=== PATIENT | female | born 1960 | race Caucasian/White ===

== ENCOUNTER 2018-10-26 06:59 | Day surgery (SDC) | payer BC ==
--- NOTE | 2018-10-10 07:16 | HP ---
CC: LEONILA Mazariegos, [facility] * ADMISSION HISTORY AND PHYSICAL: DATE OF ADMISSION: 10/26/18 ATTENDING SURGEON: Dr. Ty Chakraborty.* (DICTATED BY SOL ERAZO) CHIEF COMPLAINT: Left breast abnormality. HISTORY OF PRESENT ILLNESS: This is a 57-year-old generally healthy female who underwent screening mammography on 03/03/18. This was her first study since 2013. She herself had not noted any changes in either breast including palpable lumps, tenderness, skin changes, or nipple discharge. The mammogram on that date did show some architectural distortion in the upper inner quadrant of the left breast, this was followed by an ultrasound the same date and showing a corresponding hypoechogenic mass measuring 0.5 x 1.3 x 0.4 cm. Biopsy was recommended and was performed by ultrasound guidance on 03/07/19. Pathology showed nonproliferative fibrocystic changes without malignancy. A biopsy clip was left in place. Recommendation was made for followup imaging in 6 months. Mammogram and ultrasound were repeated on 08/21/18. The mammogram showed no significant changes other than the previously existing architectural distortion. The ultrasound confirmed the same hypoechoic lesion now measuring 0.7 x 1.5 x 0.5 cm. The recommendation was made for surgical consultation because of discordant results. She was seen in the office by Dr. Chakraborty on . His exam at that time confirmed symmetrical breast without palpable lumps or lesions and without skin or nipple changes. The patient's family history is negative for breast or brain cancer, but is positive for colon and lung cancer. Dr. Chakraborty discussed with her the indications for surgery, the risks, benefits and alternatives and she would like to proceed as scheduled with excision left breast lesion (following needle localization). PAST MEDICAL HISTORY: Seasonal and environmental allergies, GERD. PAST SURGICAL HISTORY: Her only previous surgery is bilateral eye surgery for amblyopia as a child. CURRENT MEDICATIONS: 1. Loratadine 10 mg once daily p.r.n. (not recently requiring). 2. Naproxen 250 mg q.12 hours p.r.n. joint pain (uses once or twice weekly). 3. Famotidine 20 mg b.i.d. p.r.n. for GERD symptoms (uses typically about once weekly). DRUG ALLERGIES: None known. FAMILY HISTORY: Positive for colon cancer in her mother, who at age 68 from same with diagnosis approximately 1 year earlier. Father from lung cancer around age 73 with diagnosis within less than 1 year prior to the . No additional family history of cancer. No family history of anesthesia problems, bleeding, or clotting disorders. SOCIAL HISTORY: The patient is . 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 She denies use of tobacco. She drinks less than or equal to 1 drink per week. She denies any other recreational drug use. REVIEW OF SYSTEMS: General: No recent constitutional symptoms or acute illnesses other than described in the HPI. Her weight has been relatively stable, though with some weight loss by intention and dietary changes (down approximately 8 pounds over the past 7 weeks). HEENT: No recent changes in vision. No problems with dentition or swallowing. Cardiovascular: No chest pain, palpitations, or history of heart murmur. Respiratory: No history of asthma. Seasonal allergies as noted. No recent cough or shortness of breath. GI: No problems reported other than occasional GERD symptoms, which were well controlled with her current regimen. No lower GI symptoms. She states that she is due for a 5-year followup colonoscopy, but without any concerning interval symptoms. : No problems reported. CREDIT VERIFIER: She underwent Pap smear and pelvic exam in January of last year, also see HPI. Endocrine: No diabetes or thyroid dysfunction. PHYSICAL EXAMINATION GENERAL: Well-nourished, well-developed female in no acute distress. VITAL SIGNS: Height 5 feet, weight 145 pounds, by history. Temperature 97.9, blood pressure 122/80, pulse 72, respirations 16. HEENT: Pupils are equal, round, and reactive. EOMs intact. No conjunctival pallor. Oropharynx, teeth in good repair. No intraoral lesions. NECK: No lymphadenopathy, thyromegaly, or masses. LUNGS: Clear to auscultation. No rales or wheezes. HEART: Regular rate and rhythm. No murmur noted. BREASTS: Not reexamined today. See above per Dr. Chakraborty's exam. ABDOMEN: Soft, nontender to palpation. No palpable masses or organomegaly. GENITALIA: Not done. RECTAL: Not done. BACK: No spinous process or CVA tenderness. EXTREMITIES: No edema. NEUROLOGIC: Grossly intact. SKIN: Warm and dry. No suspicious rashes or lesions noted. IMPRESSION: Left breast lesion. PLAN: Excision of left breast lesion (after needle localization). SOL ERAZO [id number]/[facility] #: [id number] MTDD
[~2018-10-26 06:59] MED LIST: Buffered Lidocaine 1% SYRIN* 1 ML/SYRINGE INTRADERM ONE; Dexamethasone TAB* 4 MG PO ONE; DiMENhydriNATE IV* 50 MG/ML VIAL IV PUSH PRN; Famotidine IV* 10 MG/ML 2 ML (20 mg) IV ONE; Lactated Ringers 1000 ML Bag* 1,000 ML IV SCH; Morphine 4 MG/ML VIAL (1 ml) 4 MG/ML VIAL IV PRN; Naloxone* 0.4 MG/ML 1 ML VIAL IV PRN; Ondansetron TAB* 4 MG PO ONE; PROCHLORPERAZINE INJ 5 MG/ML 2 ML VIAL IV PRN; Scopolamine 1.5 mg* PATCH TRANSDERM PRN; fentaNYL* 50 MCG/ML 2 ML VIAL (100 MCG VIAL) IV PRN; oxyCODONE/Acetamin 5/325 MG* TAB PO PRN
[2018-10-26] MEDS ORDERED: Lidocaine 2.5%/Prilocain 2.5%* 5 GM TUBE ONE (07:30)
[2018-10-26] MEDS ORDERED: Bupivacaine 0.5% W/EPI SDV* 30 ML VIAL ONE (09:41)
[2018-10-26] MEDS ORDERED: Lidocaine 1% INJ* 10 MG/ML 30 ML SDV ONE (09:42)
[2018-10-26] MEDS ORDERED: Bupivacaine 0.5%* 50 ML VIAL ONE (09:42)
[2018-10-26] MEDS ORDERED: ceFAZolin 2 GM PREMIX in ORs 2 GM/50 ML BAG ONE (09:47)
[2018-10-26] MEDS ORDERED: Propofol* 10 MG/ML 20 ML BTL ONE (09:53)
[2018-10-26] MEDS ORDERED: Midazolam* 1 MG/ML 5 ML VIAL (5 MG) ONE (09:53)
[2018-10-26] MEDS ORDERED: fentaNYL* 50 MCG/ML 2 ML VIAL (100 MCG VIAL) ONE (09:53)
[2018-10-26] MEDS ORDERED: Lidocaine 2% PF * 5 ML VIAL ONE (09:53)
[2018-10-26] MEDS ORDERED: Ondansetron ODT TAB* 4 MG ONE (09:56)
[2018-10-26] MEDS ORDERED: Famotidine IV* 10 MG/ML 2 ML (20 mg) ONE (09:56)
[2018-10-26] MEDS ORDERED: Dexamethasone TAB* 4 MG ONE (09:56)
[2018-10-26] MEDS ORDERED: HYDROcodone/ACETAMIN 5-325 MG* 1 TAB PO PRN (11:12)
--- NOTE | 2018-10-26 11:17 | BRIEFOPN ---
Brief Operative Note - Surgery Procedures: Procedures ARTIF RUPT MEMBRANES NEC (05/16/96) COLONOSCOPY (05/25/13) EPISIOTOMY (06/28/93) ESOPHAGOGASTRODUODENOSCOPY [EGD] W/CLOSED BIOPSY (05/25/13) MONITORING NOS (05/16/96) REPAIR OB LACERATION NEC (05/16/96) 10/26/18 Op Note Pre-op dx: left breast mammographic abnormality Post-op dx: same Procedure: Left breast needle localization excision biopsy Surgeon: Ryan Asst: none Anesth: local-MAC EBL: 5 cc SCDs on during surgery Abx: given pre-op. Complications: none Pt. tolerated procedure well and was transferred to in a stable condition. CLFoster
[2018-10-26] MEDS ORDERED: HYDROcodone/ACETAMIN 5-325 MG* 1 TAB ONE (12:35)
[2018-10-26 12:39] VITALS: BP 103/65
--- NOTE | 2018-10-26 13:48 | OP ---
CC: Dr. Marcos Wheeler * DATE OF OPERATION: 10/26/18 - [facility] DATE OF : 62 SURGEON: Sweetie Davis MD. ATHLETIC INSTRUCTOR: There was no assistant manager retail for this case. PRE-OP DIAGNOSIS: Left breast mammographic abnormality. POST-OP DIAGNOSIS: Left breast mammographic abnormality. OPERATIVE PROCEDURE: Left breast needle localization excision biopsy. INDICATIONS: Ms. Menendez is a 57-year-old woman with a non-mammographic abnormality, which was thought to be discordant with previous biopsy. Plans were therefore made for surgical intervention. DESCRIPTION OF PROCEDURE: On the morning of surgery, she underwent needle localization without difficulty. She was then brought to the operating room, placed on the OR table in supine position and given IV sedation. The left breast was prepped and draped in the usual sterile fashion taking care not to dislodge the localizing wire. After infiltrating with local anesthetic, a curvilinear elliptical incision encompassing the wire was made. Subcutaneous tissue was then divided with electrocautery to remove the mass of tissue from around the wire. Once it was removed from the breast, it was marked in the usual fashion and handed off as a specimen. Hemostasis was then assured with electrocautery and once this was adequate, the wound was irrigated with saline. Again checked for hemostasis. There was some bleeding from the depth of the wound controlled by suture ligature. Additional local was instilled into the wound after irrigating and then closure was accomplished. This was done with 3- 0 Vicryl in the subcutaneous layer and the skin was closed with 4-0 Prolene in a subcuticular fashion. Steri-Strips and a dry sterile dressing were applied. All sponge and instrument counts were correct. The patient tolerated the procedure well and was transferred to Recovery in a stable condition. [id number]/[facility] [place]: [id number] [facility]
[2018-10-29] MEDS ORDERED: Scopolamine PATCH Remove* 1 NOTE MISC PATCH OFF ONE (06:04)
== END 2018-10-26 12:41 | disposition home or self-care (01) ==
LOC: OR 06:59
PROVIDERS: ATTEND Surgery
DX: C50.212 Malignant neoplasm of upper-inner quadrant of left female breast (principal); K21.9 Gastro-esophageal reflux disease without esophagitis
CPT/HCPCS: 77061; 88307; 88360; A9270-GY; G0279; J0690; J2250; J2704; J3010; J3490; J8540

== ENCOUNTER → 2018-11-17 07:04 | Day surgery (SDC) | payer BC ==
--- NOTE | 2018-11-15 16:39 | HP ---
CC: LEONILA Mazariegos at [facility] * PREOPERATIVE HISTORY AND PHYSICAL: DATE OF ADMISSION/SURGERY: 11/17/18 This patient is scheduled for same-day surgery admission by Dr. Davis on Tuesday , 11/17/18. DATE OF EXAMINATION: 11/15/18 ATTENDING PHYSICIAN: Dr. Sweetie Davis * (dictated by Vika Lombardo NP ) CHIEF COMPLAINT: Left breast cancer. HISTORY OF PRESENT ILLNESS: The patient is a 58-year-old generally healthy female who underwent needle localization, excision of a left breast lesion by Dr. Davis, 10/26/18. The results of the biopsy came back positive for invasive ductal cancer and the patient met with Dr. Davis in our office on to discuss the results and to make further plans for treatment of the cancer. The patient underwent a bilateral breast MRI on 11/14/18 which revealed postoperative changes in the left breast but no evidence of suspicious appearing enhancing masses in either breast. Dr. Davis discussed the nature of breast cancer and the optional surgical methods for treatment and the patient has decided to proceed with wide reexcision of the left breast cancer and sentinel lymph node biopsy as a same day surgery procedure. Dr. Davis explained the nature of the surgical procedure, the relevant risks and benefits and today, I reviewed the expected postoperative care and recovery. The patient and her has had a chance to ask questions and stated that they understand the information and are satisfied with the answers given to their questions. The patient will sign surgical consent on the day of surgery. Additional breast history, the patient has never had radiation to the chest. She denies any family history of breast or ovarian cancer. She has been on control pills over 20 years ago for about 2 years; she was age 14 when she had her first menstrual period and was 32 at the time of the first live and she did breastfeed; she is postmenopausal since age 53. PAST MEDICAL HISTORY: Seasonal and environmental allergies, GERD. PAST SURGICAL HISTORY: Needle localization, excision of left breast lesion by Dr. Davis 10/26/18; bilateral eye surgery in childhood for amblyopia. CURRENT MEDICATIONS: 1. Loratadine 10 mg daily p.r.n., not recently requiring it . 2. Naproxen 250 mg every 12 hours p.r.n. joint pain and typically uses once or twice a week. 3. Famotidine 20 mg b.i.d. p.r.n. for GERD symptoms and she uses that typically once a week. ALLERGIES: No known drug allergies. No latex or food allergies. FAMILY HISTORY: No known breast or ovarian cancer; positive for colon cancer in her mother, who at age 68 from the same diagnosis; father from lung cancer around age 73. No family history of anesthesia complications, bleeding tendencies, or clotting disorders. 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 She denies use of tobacco or other substances and drinks less than 1 drink per week. REVIEW OF SYSTEMS: General: No recent constitutional symptoms or acute illnesses other than described in the history of present illness. Her weight has been relatively stable; she has made some intentional dietary changes to lose weight and has lost approximately 8 pounds over the past 7 weeks. Endocrine: No diabetes or thyroid disease. Hematologic: No easy bruising or bleeding. Breasts: Abnormal left breast as described in history of present illness. Respiratory: No chronic cough or dyspnea on exertion. Cardiovascular : No anginal chest pain or palpitations. Gastrointestinal: No nausea, vomiting, diarrhea, GI bleeding or constipation or change in bowel habits. Genitourinary: No dysuria. Musculoskeletal: Normal strength and tone. Integumentary: No chronic rashes or skin changes. No previous anesthesia complications. No history of deep vein thrombosis or pulmonary embolism. No history of MRSA infections. PHYSICAL EXAMINATION GENERAL SURVEY: The patient is a 58-year-old female, well developed, well nourished, in no acute distress. VITAL SIGNS: Height 5 feet, weight 139 pounds, body mass index 27.1. Blood pressure 110/72, pulse 78 and regular, respiratory rate 16, temperature 97.4 and tympanic. HEENT: Benign. NECK: Supple. No cervical lymphadenopathy. No supraclavicular lymphadenopathy. No thyromegaly. BREASTS: Symmetric. Left breast with a well-healed surgical incision in the superior aspect. No signs of infection. Left breast without palpable masses. No left axillary adenopathy. Right breast, no discrete masses on palpation. No right axillary lymphadenopathy. No nipple discharge from either breast. No dimpling or skin changes. BACK: No CVA tenderness. LUNGS: Breath sounds bilaterally clear and equal. HEART: Regular rate and rhythm. No murmurs or rubs appreciated. ABDOMEN: Active bowel sounds. Soft, nondistended, nontender throughout; no palpable masses or organomegaly. PELVIC: Deferred. RECTAL: Deferred. EXTREMITIES: Warm, without edema or skin ulceration. NEUROLOGIC: Alert and oriented x3. Steady gait. SKIN: Warm, dry, intact. 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 PLAN: Same-day surgery admission to Dr. Davis's service on 11/17/18 for wide reexcision of left breast cancer and sentinel lymph node biopsy. RACHEL LOMBARDO, SPIRITUAL ADVISOR [id number]/[facility] #: [id number] DREA
[~2018-11-17 07:04] MED LIST changes: +Bupivacaine 0.5%* 50 ML VIAL ONE; -Dexamethasone TAB* 4 MG PO ONE; -DiMENhydriNATE IV* 50 MG/ML VIAL IV PUSH PRN; -Famotidine IV* 10 MG/ML 2 ML (20 mg) IV ONE; +Famotidine IV* 10 MG/ML 2 ML (20 mg) IV SLOW PU ONE; +Famotidine IV* 10 MG/ML 2 ML (20 mg) ONE; +HYDROcodone/ACETAMIN 5-325 MG* 1 TAB PO PRN; +Lidocaine 1% INJ* 10 MG/ML 30 ML SDV ONE; +Lidocaine 2.5%/Prilocain 2.5%* 5 GM TUBE ONE; +Midazolam* 1 MG/ML 5 ML VIAL (5 MG) ONE; -Morphine 4 MG/ML VIAL (1 ml) 4 MG/ML VIAL IV PRN; -Naloxone* 0.4 MG/ML 1 ML VIAL IV PRN; +Ondansetron INJ* 2 MG/ML VIAL ONE; -Ondansetron TAB* 4 MG PO ONE; -PROCHLORPERAZINE INJ 5 MG/ML 2 ML VIAL IV PRN; +Propofol* 10 MG/ML 20 ML BTL ONE; -Scopolamine 1.5 mg* PATCH TRANSDERM PRN; +ceFAZolin 2 GM in NS PREMIX(*) 2 GM/100 ML BAG IVPB ONE; -fentaNYL* 50 MCG/ML 2 ML VIAL (100 MCG VIAL) IV PRN; +fentaNYL* 50 MCG/ML 2 ML VIAL (100 MCG VIAL) ONE; -oxyCODONE/Acetamin 5/325 MG* TAB PO PRN
--- NOTE | 2018-11-17 13:58 | OP ---
CC: Dr. Marcos Wheeler; [facility].* DATE OF OPERATION: 11/17/18 - [facility] DATE OF : 62 SURGEON: Sweetie Davis MD. METAL FABRICATOR WELDER: There was no land surveyor assistant for this case. PRE-OP DIAGNOSIS: Left breast cancer. POST-OP DIAGNOSIS: Left breast cancer. OPERATIVE PROCEDURE: Wide reexcision of left breast cancer and sentinel lymph node biopsy. INDICATIONS: Ms. Menendez is a 58-year-old woman who was diagnosed with left breast cancer after a needle localization procedure was done. The margins were positive, so she was prepared for wide excision and sentinel lymph node biopsy. On the morning of surgery, she underwent sentinel lymph node localization without difficulty. DESCRIPTION OF PROCEDURE: She was then brought to the operating room, placed on the OR table in the supine position and given IV sedation. The left breast and axilla were prepped and draped in the usual sterile fashion. After infiltrating with local anesthetic, an incision was made around the previous scar and subcutaneous tissue was divided with electrocautery to remove tissue from the margins that were positive, which included the anterior, superior, medial and lateral margins as well as the inferior anterior margin. This was done with electrocautery and once the specimen was out of the breast, it was marked in the usual fashion and handed off. Hemostasis was then achieved with electro-cautery. The extent of the incision was very close to the axilla, so the decision was made to approach the axilla from the breast incision. The tissue was divided from the pectoralis muscle and slept posteriorly. Dissection was done with a combination of sharp and blunt dissection to expose a node in the axilla that had radioactive counts. The counts were around 1300. Using clips to control small lymphatic and blood vessels that approach this gland, it was excised. Ex vivo counts were around 1600. The remaining axillary bed counts were around 3. The wound was irrigated copiously with saline. Some additional local was instilled into the wound and then closure was accomplished with 3-0 Vicryl in the subcutaneous layer and the skin was closed with 4-0 Prolene in a subcuticular fashion. Steri-Strips and a dry sterile dressing were applied. All sponge and instrument counts were correct. The patient tolerated the procedure well and was transferred to Recovery in a stable condition. [id number]/[facility] #: [id number] [facility]
[2018-11-17 14:23] VITALS: BP 132/84
== END | disposition home or self-care (01) ==
LOC: OR 07:04
PROVIDERS: ATTEND Surgery
DX: C50.912 Malignant neoplasm of unspecified site of left female breast (principal); K21.9 Gastro-esophageal reflux disease without esophagitis; J30.2 Other seasonal allergic rhinitis
CPT/HCPCS: 78195; 88307; 88342; A9270-GY; A9541; J0690; J2250; J2405; J2704; J3010; J3490